=== PATIENT | female | born 1980 | race Caucasian/White ===

== ENCOUNTER 2017-02-06 13:07 | Emergency (ER) | payer MEDICAID ==
[~2017-02-06] VITALS: Ht 149.9 cm; Wt 43.5 kg
[2017-02-06 13:07] VITALS: BP_SYST 150
[2017-02-06 15:28] VITALS: BP_SYST 114
== END 2017-02-06 15:27 | disposition home or self-care (01) ==
LOC: SED 13:07
DX: S09.90XA Unspecified injury of head, initial encounter (principal); F10.10 Alcohol abuse, uncomplicated; Z88.0 Allergy status to penicillin; W22.8XXA Striking against or struck by other objects, initial encounter; Y93.89 Activity, other specified; Y92.89 Other specified places as the place of occurrence of the external cause; Y99.8 Other external cause status
CPT/HCPCS: 70450-TC; 81025; 99284

== ENCOUNTER 2019-01-16 05:22 | Emergency (ER) | payer MEDICAID ==
[~2019-01-16] VITALS: Ht 149.9 cm; Wt 52.2 kg
[2019-01-16 05:30] VITALS: BP_SYST 110
[2019-01-16 06:15] LABS: BARBITURATE, URINE NEGATIVE (NEG <=200); BENZODIAZEPINE, URINE NEGATIVE (NEG <=150); CANNABINOID, URINE POSITIVE (NEG <=50); COCAINE, URINE NEGATIVE (NEG <=150); METHAMPHETAMINES SCREEN,URINE POSITIVE (NEG <=500); OPIATE, URINE NEGATIVE (NEG <=100); PHENCYCLIDINE SCREEN,URINE NEGATIVE (NEG <=25); UR TRICYCLIC ANTIDEPRESSANTS NEGATIVE (NEG <=300); URINE AMPHETAMINE POSITIVE (NEG <=500); URINE METHADONE NEGATIVE (NEG <=200); URINE OXYCODONE SCREEN NEGATIVE (NEG <=100); URINE PROPOXYPHENE SCREEN NEGATIVE (NEG <=300)
[2019-01-16 06:43] VITALS: BP_SYST 110
== END 2019-01-16 06:43 | disposition home or self-care (01) ==
LOC: SED 05:22
DX: Z02.89 Encounter for other administrative examinations (principal); Z88.0 Allergy status to penicillin
CPT/HCPCS: 80307; 99283

== ENCOUNTER 2023-05-12 15:17 | Emergency (ER) | payer MEDICAID ==
[~2023-05-12] VITALS: Ht 149.9 cm; Wt 63.5 kg
[2023-05-12 15:20] VITALS: BP_SYST 104; PULSE 89; RESP 18; TEMP 97.8; O2SAT 98
[2023-05-12] MEDS ORDERED: predniSONE 20 MG TABLET PO ONE (17:15)
[2023-05-12] MEDS ORDERED: CLINDAMYCIN HCL 150 MG CAPSULE PO ONE (17:15)
[2023-05-12] MEDS ORDERED: DIPHENHYDRAMINE HCL 50 MG CAPSULE PO ONE (17:15)
[2023-05-12] MEDS ORDERED: DIPH25CA83 PO (17:24)
[2023-05-12] MEDS ORDERED: PRED20TA PO (17:24)
[2023-05-12] MEDS ORDERED: CLIN-142 PO (17:24)
[2023-05-12] MEDS ORDERED: DIPH28.34 TP (17:24)
[2023-05-12 17:48] VITALS: BP_SYST 104; PULSE 89; RESP 18; TEMP 97.8; O2SAT 98
== END 2023-05-12 17:48 | disposition home or self-care (01) ==
LOC: SED 15:17
DX: L73.2 Hidradenitis suppurativa (principal); T42.6X5A Adverse effect of other antiepileptic and sedative-hypnotic drugs, initial encounter; L29.9 Pruritus, unspecified; Z88.0 Allergy status to penicillin; Z79.899 Other long term (current) drug therapy; Y92.89 Other specified places as the place of occurrence of the external cause
CPT/HCPCS: 99284; Q0163; J7512

== ENCOUNTER 2024-01-14 07:15 | Emergency (ER) | payer MEDICAID ==
[~2024-01-14] VITALS: Ht 162.6 cm; Wt 65.8 kg
[~2024-01-14 07:15] MED LIST: CLIN-142 PO; DIPH25CA83 PO; DIPH28.34 TP; PRED20TA PO
[2024-01-14 07:29] VITALS: BP_SYST 143; PULSE 113; RESP 20; TEMP 98.3; O2SAT 98
[2024-01-14] MEDS ORDERED: DOXY100C5 PO (08:19)
[2024-01-14] MEDS: AZITHROMYCIN 250 MG TABLET PO ONE (08:48)
[2024-01-14 08:52] VITALS: BP_SYST 138; PULSE 100; RESP 20; TEMP 98.3; O2SAT 98
[2024-01-14 09:00] LABS: BILIRUBIN,URINE NEGATIVE (NEGATIVE); BLOOD, URINE 3+ (NEGATIVE); CLARITY/URINE CLEAR (CLEAR); GLUCOSE,URINE NEGATIVE (NEGATIVE); KETONES,URINE NEGATIVE (NEGATIVE); LEUKOCYTE ESTERASE ,URINE NEGATIVE (NEGATIVE); NITRITE, URINE NEGATIVE (NEGATIVE); PROTEIN URINE NEGATIVE (NEGATIVE)
[2024-01-14 09:02] LABS: COLOR,URINE YELLOW (YELLOW)
[2024-01-14 09:15] LABS: BACTERIA,URINE MODERATE /HPF (None Seen); RBC,URINE 0-3 /HPF (0-3); WBC,URINE 0-3 /HPF (0-3)
== END 2024-01-14 08:53 | disposition home or self-care (01) ==
LOC: SED 07:15
DX: R10.2 Pelvic and perineal pain (principal); F12.90 Cannabis use, unspecified, uncomplicated; F17.200 Nicotine dependence, unspecified, uncomplicated; F15.10 Other stimulant abuse, uncomplicated; Z88.0 Allergy status to penicillin; Z79.899 Other long term (current) drug therapy
CPT/HCPCS: 99283; 81001; 87086; 36415; 81025; 87491; 81000; 81015; Q0144